=== PATIENT | male | born 1955 | race American Indian/Alaskan Native ===

== ENCOUNTER 2017-02-27 13:49 | Emergency (ER) | payer SELFPAY ==
[2017-02-27 14:55] LABS: Hematocrit 40.8 % (35.5-45.6); Hemoglobin 13.7 gm/dl (11.8-15.2); Mean Corpuscular HGB Conc 33 % (32-34); Mean Corpuscular Hemoglobin 32 pg (28-32); Mean Corpuscular Volume 96 fl (84-94); Platelet Count 206 K/mm3 (140-440); Red Blood Count 4.25 M/mm3 (3.65-5.03); Red Cell Distribution Width 14.9 % (13.2-15.2); White Blood Count 5.2 K/mm3 (4.5-11.0)
[2017-02-27 15:05] LABS: Anion Gap 24 mmol/L; BUN/Creatinine Ratio 5.71; Blood Urea Nitrogen 4 mg/dL (9-20); Calcium 8.6 mg/dL (8.4-10.2); Carbon Dioxide 21 mmol/L (22-30); Glucose 95 mg/dL (75-100); Potassium 3.9 mmol/L (3.6-5.0); Sodium 139 mmol/L (137-145)
[2017-02-27 15:41] LABS: Basophils % (Manual) 0 % (0.0-1.8); Blastocytes % (Manual) 0 %; Eosinophils % (Manual) 0 % (0.0-4.3)
[2017-02-27 15:44] LABS: Anisocytosis 1+
[2017-02-27 15:45] LABS: Diff Status Complete; Tear Drop Cells Few
--- NOTE | 2017-02-27 16:34 | XRay Report ---
Chest 2 views. History: Shortness of breath. Findings: The lungs are hyperinflated and clear. The heart and pulmonary vessels are normal. There is no pleural fluid. Impression: Hyperinflation lungs consistent with COPD. No acute findings are seen.
[2017-02-27] MEDS ORDERED: ATIVAN ONE (19:40)
[2017-02-27 19:57] VITALS: BP 130/92
--- NOTE | 2017-02-27 20:18 | Emergency Department Report ---
HPI - General Chief Complaint: Upper Respiratory Infection Time Seen by Provider: 02/27/17 20:15 - HPI HPI: Patient after drinking large amount of alcohol study having chills. Patient also complaining of nausea, and cough. Patient is an alcoholic, states elect to drink wine. Have a similar episodes in the past. ED Past Medical Hx - Past Medical History Previous Medical History?: No - Surgical History Past Surgical History?: No - Family History Family history: hypertension - Social History Smoking Status: Current Every Day Smoker Substance Use Type: None - Medications Home Medications: Home Medications Medication Instructions Recorded Confirmed Last Taken Type Amoxicillin/K Clav Tab [Augmentin 1 tab PO Q12HR #20 tab 02/27/17 Unknown Rx 875 mg] Ondansetron [Zofran TAB] 4 mg PO Q8HR PRN #14 tablet 02/27/17 Unknown Rx ED Review of Systems ROS: Stated complaint: CHILLS/ETOH Other details as noted in HPI Comment: All other systems reviewed and negative Respiratory: cough Gastrointestinal: nausea Physical Exam - Physical Exam Vital Signs: Vital Signs 02/27/17 02/27/17 14:03 19:56 Temperature 99.0 F Pulse Rate 95 H 100 H Respiratory 20 16 Rate Blood Pressure 118/85 Blood Pressure 130/92 [Left] O2 Sat by Pulse 99 95 Oximetry Physical Exam: Gen. alert and oriented 3 in no distress Head atraumatic normocephalic Eyes PERR LA EOMI Chest regular rate and rhythm normal S1-S2 lungs clear bilaterally Abdomen soft nondistended Back no point tenderness paravertebral tenderness Neuro no focal deficit. Psych normal mood. ED Course Vital Signs 02/27/17 02/27/17 14:03 19:56 Temperature 99.0 F Pulse Rate 95 H 100 H Respiratory 20 16 Rate Blood Pressure 118/85 Blood Pressure 130/92 [Left] O2 Sat by Pulse 99 95 Oximetry - Reevaluation(s) Reevaluation #1: 02/27/17 20:17 Patient stated the ER for observation for about 6 hours. Friend at bedside will take him home. ED Medical Decision Making - Lab Data Result diagrams: 02/27/17 14:22 02/27/17 14:22 Critical care attestation.: If time is entered above; I have spent that time in minutes in the direct care of this critically ill patient, excluding procedure time. ED Disposition Clinical Impression: Acute bronchitis Disposition: DC-01 TO HOME OR SELFCARE Is pt being admited?: No Does the pt Need Aspirin: No Condition: Stable Instructions: Acute Bronchitis (ED) Prescriptions: Amoxicillin/K Clav Tab [Augmentin 875 mg] 1 tab PO Q12HR #20 tab Ondansetron [Zofran TAB] 4 mg PO Q8HR PRN #14 tablet PRN Reason: Nausea Referrals: PRIMARY CARE, [Primary Care Provider] - 3-5 Days
[2017-02-27] MEDS ORDERED: ATIVAN IV ONE (20:21)
== END 2017-02-27 20:48 | disposition home or self-care (01) ==
LOC: ED 13:49
DX: J20.9 Acute bronchitis, unspecified (principal); F17.200 Nicotine dependence, unspecified, uncomplicated
CPT/HCPCS: 36415; 71020; 80048; 85007; 85025; 87040; 93005; 93010; 96374; 99284; G0480; J2060; 80320